=== PATIENT | male | born 1960 | race Caucasian/White ===

== ENCOUNTER 2017-09-13 13:35 | Day surgery (SDC) | payer OTHER ==
[~2017-09-13 13:35] MED LIST: CEFAZOLIN 1 GM INJ
[2017-09-13] MEDS ORDERED: LIDOCAINE 1% (MPF) 30 ML INJ (15:09)
[2017-09-13] MEDS ORDERED: BUPIVACAINE 0.5% (SDV) 30 ML INJ (15:09)
[2017-09-13] MEDS ORDERED: DIPHENHYDRAMINE 50 MG INJ IV (15:30)
[2017-09-13] MEDS ORDERED: MEPERIDINE 25 MG INJ IV (15:30)
[2017-09-13] MEDS ORDERED: HYDROmorphONE 1 MG/5 ML IV SYRINGE IV ×3 (15:30)
[2017-09-13] MEDS ORDERED: METOCLOPRAMIDE 10 MG INJ IV (15:30)
[2017-09-13] MEDS ORDERED: ONDANSETRON 4 MG INJ IV (15:30)
[2017-09-13] MEDS ORDERED: FENTAnyl 50 MCG/ML VIAL IV ×2 (15:30)
[2017-09-13] MEDS ORDERED: ALBUTEROL 0.083% (NEB) 2.5 MG/3 ML AMP HHN (15:30)
[2017-09-13] MEDS ORDERED: FENTAnyl 50 MCG/ML VIAL (15:44)
[2017-09-13] MEDS ORDERED: MIDAZOLAM 1 MG/ML 2 ML INJ (15:44)
[2017-09-13] MEDS: LIDOCAINE 1% (MPF) 30 ML INJ INJ (15:45)
[2017-09-13] MEDS: BUPIVACAINE 0.5% (MPF) 30 ML INJ INJ (15:45)
== END 2017-09-13 17:40 | disposition home or self-care (01) ==
LOC: SDS 13:35
DX: G56.02 Carpal tunnel syndrome, left upper limb (principal); E78.00 Pure hypercholesterolemia, unspecified
CPT/HCPCS: 64721